=== PATIENT | female | born 2000 | race Caucasian/White ===

== ENCOUNTER → 2025-02-17 | Outpatient (CLI) | payer OTHER ==
[~2025-02-17] MED LIST: ISOVUE-300 61% 100ML VIAL As Ordered ONE; LIDOCAINE 1% MDV 20ML VIAL As Ordered ONE; methylPREDNISolone 80MG/ML SUSP 1ML VIAL As Ordered ONE
== END ==
LOC: M RAD 11:25
PROVIDERS: ATTEND Student in an Organized Health Care Education/Training Program
DX: M25.552 Pain in left hip (principal); M25.851 Other specified joint disorders, right hip
CPT/HCPCS: 20610; 77002; J1010; Q9967

== ENCOUNTER → 2025-03-10 | Outpatient (CLI) | payer OTHER | LOC: M RAD 13:33 → EDUNIT# 14:00 | PROVIDERS: ATTEND Student in an Organized Health Care Education/Training Program | DX: M25.851 Other specified joint disorders, right hip (principal); M25.852 Other specified joint disorders, left hip | CPT/HCPCS: 20610; 77002; J1010; Q9967 ==